=== PATIENT | male | born 1990 | race Caucasian/White ===

== ENCOUNTER 2025-10-21 08:47 | Outpatient (CLI) | payer BC | END 2025-10-21 08:48 | disposition home or self-care (01) | LOC: CSHMRI 08:47 | PROVIDERS: ATTEND Psychiatry & Neurology Neurology with Special Qualifications in Child Neurology | DX: G35.D Multiple sclerosis, unspecified (principal); M47.814 Spondylosis without myelopathy or radiculopathy, thoracic region | CPT/HCPCS: 70551; 72141; 72146 ==